=== PATIENT | male | born 2005 | race African-American/Black ===

== ENCOUNTER 2024-11-18 16:14 | Emergency (ER) | payer BC, OTHER ==
[2024-11-18 16:52] VITALS: BP 149/88; PULSE 73; RESP 18; TEMP 98.5; BMI 24.3
== END 2024-11-18 17:28 | disposition home or self-care (01) ==
LOC: FER 16:14
PROC: 0HQCXZZ Repair Left Upper Arm Skin, External Approach (ICD-10-PCS; principal; 2024-11-18)
DX: S41.112A Laceration without foreign body of left upper arm, initial encounter (principal); W26.8XXA Contact with other sharp object(s), not elsewhere classified, initial encounter; Y99.0 Civilian activity done for income or pay
CPT/HCPCS: 99283-25